=== PATIENT | male | born 1935 | race Caucasian/White ===

== ENCOUNTER 2017-03-27 14:00 | Outpatient (CLI) | payer MEDICARE, OTHER ==
--- NOTE | 2017-03-27 16:39 | RAD ---
THREE VIEWS THORACIC SPINE: 03/27/17 HISTORY: Back pain. Chronic lung changes with evidence of prior granulomatous disease. Vascular calcification in thoracic aorta. There are scattered degenerative changes seen in the thoracic as well as involving the upper lumbar spine. There is also degenerative change involving the visualized cervical spine. No obvious fractur e is seen. There is no subluxation. Vascular calcifications are seen overlying the upper abdomen. Th ere is questionable patchy parenchymal density seen overlying the lateral aspect of the right middle lobe. This is not well seen on the frontal projection although is suggestion of increased density. Findings could be related overlying pleural based plaques and prior granulomatous disease which were seen on prior study on 10/09/12. IMPRESSION: 1. Degenerative changes in the thoracic spine without obvious fracture or subluxation. 2. Increased density in region of the right middle lobe which may be related to overlying prior granulomatous disease and/or calcified pleural based plaque. However, this is incompletely imaged o n this exam and further evaluation with PA and lateral chest x-ray is recommended. POS: RUPERT
== END 2017-03-27 14:01 | disposition home or self-care (01) ==
LOC: RAD-FRANK 14:00
PROVIDERS: ATTEND Nurse Practitioner Family
DX: M54.9 Dorsalgia, unspecified (principal); M47.814 Spondylosis without myelopathy or radiculopathy, thoracic region
CPT/HCPCS: 72072

== ENCOUNTER 2017-05-10 10:18 | Outpatient (CLI) | payer MEDICARE, OTHER ==
--- NOTE | 2017-05-10 13:20 | MRI ---
THORACIC SPINE WITHOUT CONTRAST: Date: 05-10-17 Comparison: None. History: Pain which originates the mid thoracic region and radiates into the right shoulder blade and travels up into the head. Pain for two months. Technique: Multiplanar, multisequence MR imaging of the thoracic spine provided without contrast. FINDINGS: Sagittal STIR imaging demonstrates a lesion of increased T2 signal within the T3 vertebral body poste riorly extending into the pedicle on the left which is slightly hyperintense on the T1 weighted imagi ng, likely on the basis of a hemangioma. Additional scattered thoracic spine foci of increased T2 and T1 signal suggests hemangiomata. There is no evidence of acute fracture on STIR imaging. No anterolisthesis or retrolisthesis is noted within the thoracic spine. The thoracic cord demonstrates normal caliber and signal intensity. There is no significant central c anal stenosis within the thoracic spine. There is multilevel disc space narrowing and disc desiccation throughout the thoracic spine. There is no significant thoracic spine neural foraminal stenosis at any level on either side. IMPRESSION: No MR evidence for acute fracture or significant central canal/neural foraminal stenosis within the t horacic spine. POS: RUPERT
--- NOTE | 2017-05-10 14:10 | MRI ---
MRI OF THE CERVICAL SPINE WITHOUT CONTRAST: DATE: 05/10/17. COMPARISON: None. HISTORY: Neck pain. TECHNIQUE: Multiplanar, multisequence MR imaging of the cervical spine provided without contrast. FINDINGS: Sagittal STIR imaging demonstrates edematous degenerative end plate change at C4-5. No evidence for acute fracture noted. No significant anterolisthesis or retrolisthesis. No prevertebral soft tissue abnormality. C2-3: Disk space narrowing and disk desiccation. Mild bilateral facet hypertrophy with mild right n eural foraminal stenosis. No central canal or left neural foraminal stenosis. C3-4: Disk space narrowing, disk desiccation, and mild disk bulge present with no significant centra l canal stenosis. Facet and uncovertebral osteophyte formation noted bilaterally, right greater than left. There is mild right neural foraminal stenosis. No significant left neural foraminal stenosis . C4-5: Disk space narrowing, disk desiccation, degenerative end plate change, and posterior disk bulg e present. There is partial effacement of the ventral thecal sac with no significant central canal s tenosis. There is moderate right neural foraminal stenosis on the basis of facet and uncovertebral o steophyte formation. No left neural foraminal stenosis. C5-6: Mild facet and uncovertebral osteophyte formation, right greater than left, with mild bilatera l neural foraminal stenosis. There is disk space narrowing and disk desiccation with no central terry l stenosis. C6-7: Disk space narrowing, disk desiccation, and mild disk bulge present. No significant central c anal stenosis. Facet and uncovertebral osteophyte formation noted bilaterally, left greater than rig ht. Mild bilateral neural foraminal stenosis. C7-T1: Disk space narrowing and disk desiccation. No significant central canal or neural foraminal s tenosis. No focal area of abnormal signal intensity is identified within the cervical cord. IMPRESSION: Multilevel cervical spine degenerative change. POS: RUPERT
== END 2017-05-10 10:19 | disposition home or self-care (01) ==
LOC: TBSIIMAG 10:18
PROVIDERS: ATTEND Neurological Surgery
DX: M47.12 Other spondylosis with myelopathy, cervical region (principal); Q76.2 Congenital spondylolisthesis
CPT/HCPCS: 72141; 72146

== ENCOUNTER 2021-07-12 13:13 | Outpatient (CLI) | payer MEDICARE, OTHER | END 2021-07-12 13:14 | disposition home or self-care (01) | LOC: RAD-FRANK 13:13 | PROVIDERS: ATTEND Nurse Practitioner Family | DX: M79.601 Pain in right arm (principal) ==

== ENCOUNTER 2022-01-04 09:44 | Outpatient (CLI) | payer MEDICARE, OTHER | END 2022-01-04 09:45 | disposition home or self-care (01) | LOC: RAD-FRANK 09:44 | PROVIDERS: ATTEND Nurse Practitioner Family | DX: S29.011A Strain of muscle and tendon of front wall of thorax, initial encounter (principal) | CPT/HCPCS: 71046 ==

== ENCOUNTER 2023-11-27 07:39 | Outpatient (CLI) | payer MEDICARE, OTHER ==
[2023-11-27] MEDS ORDERED: Iopamidol 370 76% 100 ML VIAL ONE (09:14)
== END 2023-11-27 07:40 | disposition home or self-care (01) ==
LOC: BICCT 07:39
PROVIDERS: ATTEND Radiology Radiation Oncology
DX: C34.11 Malignant neoplasm of upper lobe, right bronchus or lung (principal); E07.9 Disorder of thyroid, unspecified; R93.7 Abnormal findings on diagnostic imaging of other parts of musculoskeletal system; R91.8 Other nonspecific abnormal finding of lung field; M53.84 Other specified dorsopathies, thoracic region
CPT/HCPCS: 70491; 71260; 82565; Q9967